=== PATIENT | female | born 1940 | race Caucasian/White ===

== ENCOUNTER 2017-12-14 15:25 | Emergency (ER) | payer OTHER, MEDICARE ==
[~2017-12-14] VITALS: Ht 162.6 cm; Wt 49.9 kg
[2017-12-14 16:28] LABS: ABSOLUTE BASOPHIL COUNT 0.1 /CUMM (0.0-0.2); ABSOLUTE EOSINOPHIL COUNT 0.1 /CUMM (0.0-0.7); ABSOLUTE GRANULOCYTE CT 7.1 /CUMM (1.4-6.5); ABSOLUTE LYMPH COUNT 0.9 /CUMM (1.2-3.4); ABSOLUTE MONOCYTE COUNT 0.6 /CUMM (0.10-0.60); BASOPHIL % 0.7 % (0.0-2.0); EOSINOPHIL % 0.8 % (0-5); GRANULOCYTE % 81.5 % (42.2-75.2); HEMATOCRIT 32.4 % (37-47); MEAN CORPUSCULAR HGB 30.8 PG (27.0-31.0); MEAN CORPUSCULAR HGB CONC 33.5 G/DL (33.0-37.0); MEAN CORPUSCULAR VOLUME 91.7 FL (81.0-99.0); MEAN PLATELET VOLUME 6.4 FL (7.4-10.4); PLATELET COUNT 331 /CUMM (130-400); RBC DISTRIBUTION WIDTH 14.5 % (11.5-14.5); RED BLOOD CELL CT 3.53 /CUMM (4.20-5.40); WHITE BLOOD CELL COUNT 8.8 /CUMM (4.8-10.8)
--- NOTE | 2017-12-14 19:18 | ED GI/GU/ABDOMINAL COMPLAINT ---
History of Present Illness General Chief Complaint: Abdominal Pain/Flank Pain Stated Complaint: ABD PAIN Source: patient Exam Limitations: no limitations Vital Signs & Intake/Output Vital Signs & Intake/Output Vital Signs Date Time Temp Pulse Resp B/P B/P Pulse O2 O2 Flow FiO2 Mean Ox Delivery Rate 12/14 2121 64 20 186/70 99 Room Air 12/14 1611 97.6 65 18 156/76 98 Room Air Allergies Coded Allergies: Sulfa (Sulfonamide Antibiotics) (HIVES 12/14/17) amoxicillin (HIVES 12/14/17) clarithromycin (From BIAXIN) (ANAPHYLAXIS 12/14/17) clindamycin (HIVES 12/14/17) levofloxacin (From LEVAQUIN) (HIVES 12/14/17) Triage Note: PT STATES SHE HAD STABBING PAIN ABOUT ONE HOUR. PT STATES SHE WAS DOUBLED OVER AND SHE FELT IF SHE COULD PASS OUT. PT DENIES THIS EVERY HAPPENING BEFORE. PT DENIES URINARY S/S AND STATES SHE IS MOVING HER BOWELS WITHOUT DIFFICULTY Triage Nurses Notes Reviewed? yes LMP (ages 10-50): post menopausal ? n Is pt currently ? No Onset: Abrupt Duration: hour(s): (4-5), better, continues in ED Timing: single episode today Quality/Severity: sharpness, severe, stabbing Severity Numbers: 9 Location: epigastric Radiation: back, flank (bilateral) Activities at Onset: eating Prior Abdominal Problems: none Past Sexual History: Unobtainable at this time No Modifying Factors: none Modifying Factors: Worsens With: movement, palpation. Associated Symptoms: abdominal pain HPI: 77-year-old female past medical history of rheumatoid arthritis presents for evaluation of epigastric pain. Patient states that about 4-5 hours ago now she was getting ready to eat lunch when she suddenly felt a severe sharp stabbing pain in her epigastric area. She states that she tried to eat through the pain however eating seems to make the pain worse. The pain was located in the epigastric area and radiates around the bilateral flanks of the back. Described as sharp stabbing. Never had this before. No associated nausea vomiting diarrhea or urinary symptoms shortness of breath or hemoptysis. Patient states that since the pain first started as improved significantly. She is not taking any medicine for this. She denies any feeling of heartburn. No history of heartburn. She does not take any NSAIDs. Denies any cardiac history. She is not a diabetic. No recent surgery recent trauma or extremity edema. No history of DVT. (David Maynard) Past History Travel History Traveled to [place] past 21 day No Medical History Any Pertinent Medical History? see below for history Musculoskeletal: RA Surgical History Surgical History: non-contributory Psychosocial History What is your primary language Zambian Tobacco Use: Never used ETOH Use: denies use Illicit Drug Use: denies illicit drug use Family History Hx Contributory? No (David Maynard) Review of Systems Review of Systems Constitutional: Reports: no symptoms. EENTM: Reports: no symptoms. Respiratory: Reports: no symptoms. Cardiovascular: Reports: no symptoms. GI: Reports: see HPI, abdominal pain. Genitourinary: Reports: no symptoms. Musculoskeletal: Reports: no symptoms. Skin: Reports: no symptoms. Neurological/Psychological: Reports: no symptoms. Hematologic/Endocrine: Reports: no symptoms. Immunologic/Allergic: Reports: no symptoms. All Other Systems: Reviewed and Negative (David Maynard) Physical Exam Physical Exam General Appearance: well developed/nourished, no apparent distress, alert, awake Head: atraumatic, normal appearance Eyes: Bilateral: normal appearance, PERRL, EOMI. Ears, Nose, Throat, Mouth: hearing grossly normal, moist mucous membrane Neck: normal inspection, supple, full range of motion Respiratory: normal breath sounds, chest non-tender, no respiratory distress, lungs clear Cardiovascular: regular rate/rhythm, normal peripheral pulses Peripheral Pulses: 2+ radial (R), 2+ radial (L) Gastrointestinal: normal bowel sounds, soft, no organomegaly, tenderness ( epigastric) Back: normal inspection, normal range of motion, no vertebral tenderness, no CVA tenderness Extremities: normal range of motion, no peripheral edema Neurologic/Psych: no motor/sensory deficits, awake, alert, oriented x 3, normal gait, normal mood/affect Skin: intact, normal color, warm/dry Core Measures ACS in differential dx? Yes Sepsis Present: No Sepsis Focused Exam Completed? No (David Maynard) Progress Differential Diagnosis: AAA, AMI, appendicitis, biliary colic, bowel obstruction , cholecystitis, diverticulitis, gastritis, kidney stone, pancreatitis, peptic ulcer, PUD/GERD, perforated viscous, UTI/pyelo Plan of Care: Orders Procedure Date/time Status TROPONIN LEVEL 04/23 2000 Complete EKG 12/15 1999 Active URINALYSIS 12/14 195 Complete TROPONIN LEVEL 12/14 160 Complete LIPASE 12/14 160 Complete COMPREHENSIVE METABOLIC PANEL 12/14 160 Complete CBC WITHOUT DIFFERENTIAL 12/14 160 Complete AMYLASE 12/14 160 Complete EKG 12/14 1528 Active Laboratory Tests 12/14/178: Urine Color YEL, Urine Clarity CLEAR, Urine pH 6.0, Ur Specific Sterling 1.020, Urine Protein NEG, Urine Ketones NEG, Urine Nitrite NEG, Urine Bilirubin NEG, Urine Urobilinogen 0.2, Ur Leukocyte Esterase NEG, Ur Microscopic EXAM NOT REQUIRED, Urine Hemoglobin NEG, Urine Glucose NEG 12/14/172024: Troponin I < 0.01 12/14/17 161: Anion Gap 8, Estimated GFR > 60, BUN/Creatinine Ratio 41.3 H, Glucose 97, Calcium 10.0, Total Bilirubin 0.6, AST 32, ALT 33, Alkaline Phosphatase 63, Troponin I < 0.01, Total Protein 6.6, Albumin 4.2, Globulin 2.4, Albumin/ Globulin Ratio 1.8, Amylase 53, Lipase 47, CBC w Diff NO MAN DIFF REQ, RBC 3.53 L, MCV 91.7, MCH 30.8, MCHC 33.5, RDW 14.5, MPV 6.4 L, Gran % 81.5 H, Lymphocytes % 10.4 L, Monocytes % 6.6, Eosinophils % 0.8, Basophils % 0.7, Absolute Granulocytes 7.1 H, Absolute Lymphocytes 0.9 L, Absolute Monocytes 0.6, Absolute Eosinophils 0.1, Absolute Basophils 0.1 Patient seen and evaluated. She is here with acute onset epigastric pain radiating around the flanks to the back. The pain was most severe at onset and has improved significantly now. Patient currently reports pain that is a 2 out of 10 when it was initially 9 out of 10. The pain started before eating and worsened with eating. There was no shortness of breath nausea vomiting or diarrhea. She never had this before. Does not take NSAIDs. No melena or bright red blood per rectum. Vital signs are stable patient appears clinically well. Basic blood work was obtained patient will get a CTA of the chest and pelvis to rule out dissection. Patient is medicated with Pepcid here. All blood work is back and does not show any significant change including a negative lipase negative troponin. CT of the chest on the pelvis is negative for any acute findings EKG troponin negative. Patient continues to report improvement in her symptoms. Patient was able to eat food and fluids here without any worsening of her pain. No vomiting. A repeat EKG troponin was ordered. EKG troponin are negative and unchanged patient continues to have improvement in her symptoms. She currently reports feeling well having no concerns. No chest pain no shortness of breath. Reviewed all results of today's visit with patient. She'll be referred to her primary care doctor for further evaluation treatment. Advised her to continue Pepcid. Avoid greasy fatty spicy foods. Avoid alcohol and caffeine. Discussed return the cautions in detail. Case discussed with Dr. Real he agrees. Repeat manual blood pressure 150s over 90s. Diagnostic Imaging: Viewed by Me: CT Scan. Discussed w/RAD: CT Scan. Radiology Impression: PATIENT: HANDY LOPEZ PRESENT AGE: 77 PATIENT ACCOUNT NO: [id number] : 39 LOCATION: [facility] ORDERING PHYSICIAN: David PEMBERTON SERVICE DATE: 12/14/17 EXAM TYPE: CAT - CT ABD & PELVIS ANGIOGRAM; CTA CHEST-AORTIC DISSECTION STUDY PERFORMED: CTA OF THE CHEST, ABDOMEN AND PELVIS WITH AND WITHOUT CONTRAST CLINICAL INFORMATION: Epigastric pain radiating to the back. DESCRIPTION: Initial noncontrast CT of the chest was performed. Contrast timing was performed at the level of the distal descending thoracic aorta. Subsequently, arterial phase multidetector volumetric imaging was performed through the chest, abdomen and pelvis following the administration of 95 mL Optiray 320 intravenous contrast. No contrast reaction reported Sagittal and coronal reformatted images were obtained on the technologist workstation. Three-dimensional MIP reformatted imaging was performed and reviewed. Total exam dose-length product 552.34 mGy-cm COMPARISON: None FINDINGS: Vascular: 1. Thoracic aorta: The ascending thoracic aorta is normal, measuring up to 3.0 cm there is no evidence of dissection. There is no significant atherosclerotic disease. The descending thoracic aorta is normal in caliber with minimal nonflow limiting atherosclerotic disease. 2. Great vessels: The brachiocephalic artery, left common carotid artery and left subclavian artery are widely patent without evidence of atherosclerotic disease. 3. Coronary vessels: Minimal visible calcifications 4. Mesenteric Arteries: The celiac axis, superior mesenteric artery and inferior mesenteric artery are patent. There is conventional branching anatomy of the celiac axis. 5. Renal Arteries: There are 2 left and 2 right renal arteries which appear patent. 6. Infrarenal Abdominal Aorta :Mild diffuse infrarenal abdominal aortic disease. No flow-limiting stenosis. The iliac arteries are normal in course and caliber. 7. No segmental or subsegmental pulmonary emboli within the pulmonary artery. Nonvascular: CHEST: The central airways are patent. The lungs are clear with no evidence of consolidation. No pleural effusion or pneumothorax. There are no pulmonary parenchymal nodules. Mild pleural thickening of the lung apices bilaterally. The heart is of normal size. No pericardial effusion. There is no mediastinal, hilar or axillary lymphadenopathy. There are no chest wall masses. Subcentimeter hypodense nodule in the right thyroid lobe. ABDOMEN AND PELVIS: The liver is normal in size, shape, and attenuation. No focal hepatic lesion or biliary ductal dilatation is present. The gallbladder is unremarkable with no evidence of radiopaque gallstones, gallbladder wall thickening, or obvious pericholecystic inflammatory changes. There is mixing of contrast within the portal vein due to the phase of contrast timing. The pancreas is normal in appearance. No mass or surrounding fluid. The adrenal glands are normal in appearance. The spleen is normal in appearance. The kidneys are normal in size, shape, and attenuation. No hydronephrosis, hydroureter, or calculi. Stomach and small bowel non-dilated. Small hiatal hernia. No colonic wall thickening or pericolonic inflammatory changes. No hernia seen. No lymphadenopathy. The aorta is normal in caliber. Bladder is distended without wall thickening. Pelvic viscera are unremarkable. BONY STRUCTURES: Severe degenerative disc disease L5- S1. Additional mild degenerative disc disease is noted at L2-L3. No acute osseous finding. IMPRESSION: 1. No aneurysm, dissection, vascular malformation or flow-limiting stenosis of the thoracic or abdominal aorta. 2. No acute findings of the chest, abdomen or pelvis. DICTATED BY: Douglas Venegas MD DATE/ TIME DICTATED:12/14/172045 ADULT NEUROLOGIST:CALI DATE/TIME TRANSCRIBED: 12/14/172045 CONFIDENTIAL, DO NOT COPY WITHOUT APPROPRIATE AUTHORIZATION. < Electronically signed in Other Vendor System> SIGNED BY: Douglas Venegas MD 12/14/17 1333 Initial ED EKG: normal sinus rhythm, nonspecific ST T wave chg, LEFT ATRIAL ABN Repeat EKG: unchanged (David Maynard) Departure Departure Disposition: HOME OR SELF CARE Condition: Stable Clinical Impression Primary Impression: Epigastric pain Referrals: Hali KANG,Renato Almeida (PCP/Family) Additional Instructions: Continue Pepcid once daily as needed for abdominal pain/acid reflux. Avoid greasy fatty spicy foods. Make a follow-up appointment with your primary care doctor for recheck this week. Monitor symptoms closely return with any concerns. Departure Forms: Customer Survey General Discharge Information (David Maynard) PA/GRAIN ELEVATOR SUPERINTENDENT Co-Sign Statement Statement: ED Attending supervision documentation- [] I saw and evaluated the patient. I have also reviewed all the pertinent lab results and diagnostic results. I agree with the findings and the plan of care as documented in the PA's/GRAIN ELEVATOR SUPERINTENDENT's documentation. [x] I have reviewed the ED Record and agree with the PA's/GRAIN ELEVATOR SUPERINTENDENT's documentation. [] Additions or exceptions (if any) to the PAs/GRAIN ELEVATOR SUPERINTENDENT's note and plan are summarized below: [] (Addie KANG,Steven Almeida)
--- NOTE | 2017-12-14 21:07 | CT SCAN REPORT ---
STUDY PERFORMED: CTA OF THE CHEST, ABDOMEN AND PELVIS WITH AND WITHOUT CONTRAST CLINICAL INFORMATION: Epigastric pain radiating to the back. DESCRIPTION: Initial noncontrast CT of the chest was performed. Contrast timing was performed at the level of the distal descending thoracic aorta. Subsequently, arterial phase multidetector volumetric imaging was performed through the chest, abdomen and pelvis following the administration of 95 mL Optiray 320 intravenous contrast. No contrast reaction reported Sagittal and coronal reformatted images were obtained on the technologist workstation. Three-dimensional MIP reformatted imaging was performed and reviewed. Total exam dose-length product 552.34 mGy-cm COMPARISON: None FINDINGS: Vascular: 1. Thoracic aorta: The ascending thoracic aorta is normal, measuring up to 3.0 cm there is no evidence of dissection. There is no significant atherosclerotic disease. The descending thoracic aorta is normal in caliber with minimal nonflow limiting atherosclerotic disease. 2. Great vessels: The brachiocephalic artery, left common carotid artery and left subclavian artery are widely patent without evidence of atherosclerotic disease. 3. Coronary vessels: Minimal visible calcifications 4. Mesenteric Arteries: The celiac axis, superior mesenteric artery and inferior mesenteric artery are patent. There is conventional branching anatomy of the celiac axis. 5. Renal Arteries: There are 2 left and 2 right renal arteries which appear patent. 6. Infrarenal Abdominal Aorta :Mild diffuse infrarenal abdominal aortic disease. No flow-limiting stenosis. The iliac arteries are normal in course and caliber. 7. No segmental or subsegmental pulmonary emboli within the pulmonary artery. Nonvascular: CHEST: The central airways are patent. The lungs are clear with no evidence of consolidation. No pleural effusion or pneumothorax. There are no pulmonary parenchymal nodules. Mild pleural thickening of the lung apices bilaterally. The heart is of normal size. No pericardial effusion. There is no mediastinal, hilar or axillary lymphadenopathy. There are no chest wall masses. Subcentimeter hypodense nodule in the right thyroid lobe. ABDOMEN AND PELVIS: The liver is normal in size, shape, and attenuation. No focal hepatic lesion or biliary ductal dilatation is present. The gallbladder is unremarkable with no evidence of radiopaque gallstones, gallbladder wall thickening, or obvious pericholecystic inflammatory changes. There is mixing of contrast within the portal vein due to the phase of contrast timing. The pancreas is normal in appearance. No mass or surrounding fluid. The adrenal glands are normal in appearance. The spleen is normal in appearance. The kidneys are normal in size, shape, and attenuation. No hydronephrosis, hydroureter, or calculi. Stomach and small bowel non-dilated. Small hiatal hernia. No colonic wall thickening or pericolonic inflammatory changes. No hernia seen. No lymphadenopathy. The aorta is normal in caliber. Bladder is distended without wall thickening. Pelvic viscera are unremarkable. BONY STRUCTURES: Severe degenerative disc disease L5-S1. Additional mild degenerative disc disease is noted at L2-L3. No acute osseous finding. IMPRESSION: 1. No aneurysm, dissection, vascular malformation or flow-limiting stenosis of the thoracic or abdominal aorta. 2. No acute findings of the chest, abdomen or pelvis.
[2017-12-14 22:44] VITALS: BP 152/82
== END 2017-12-14 22:51 ==
LOC: ERH 15:25
PROVIDERS: Physician Assistant Medical
DX: R10.13 Epigastric pain (principal)
CPT/HCPCS: 74174; 81003; 93005; 93010

== ENCOUNTER 2018-03-08 12:53 | Emergency (ER) | payer OTHER, MEDICARE ==
[2018-03-08 13:28] LABS: ABSOLUTE BASOPHIL COUNT 0 /CUMM (0.0-0.2); ABSOLUTE EOSINOPHIL COUNT 0 /CUMM (0.0-0.7); ABSOLUTE GRANULOCYTE CT 3.8 /CUMM (1.4-6.5); ABSOLUTE LYMPH COUNT 1.3 /CUMM (1.2-3.4); ABSOLUTE MONOCYTE COUNT 0.4 /CUMM (0.10-0.60); BASOPHIL % 0.4 % (0.0-2.0); EOSINOPHIL % 0.9 % (0-5); GRANULOCYTE % 68.9 % (42.2-75.2); HEMATOCRIT 31.7 % (37-47); MEAN CORPUSCULAR HGB 31.5 PG (27.0-31.0); MEAN CORPUSCULAR HGB CONC 34.6 G/DL (33.0-37.0); MEAN CORPUSCULAR VOLUME 90.9 FL (81.0-99.0); MEAN PLATELET VOLUME 6.6 FL (7.4-10.4); PLATELET COUNT 284 /CUMM (130-400); RBC DISTRIBUTION WIDTH 13.4 % (11.5-14.5); RED BLOOD CELL CT 3.49 /CUMM (4.20-5.40); WHITE BLOOD CELL COUNT 5.5 /CUMM (4.8-10.8)
[2018-03-08 17:06] VITALS: BP 154/74
--- NOTE | 2018-03-08 18:13 | ED GENERAL ADULT ---
History of Present Illness General Chief Complaint: General Adult Stated Complaint: SENT BY PCP FOR IV HYDRATION PER PT Source: patient, family Exam Limitations: no limitations Vital Signs & Intake/Output Vital Signs & Intake/Output Vital Signs Date Time Temp Pulse Resp B/P B/P Pulse O2 O2 Flow FiO2 Mean Ox Delivery Rate 03/08 1706 97.5 64 18 154/74 99 Room Air 03/08 1309 97.9 68 17 146/71 97 Room Air Allergies Coded Allergies: Sulfa (Sulfonamide Antibiotics) (HIVES 12/14/17) amoxicillin (HIVES 12/14/17) clarithromycin (From BIAXIN) (ANAPHYLAXIS 12/14/17) clindamycin (HIVES 12/14/17) levofloxacin (From LEVAQUIN) (HIVES 12/14/17) Triage Note: PT REFERRED TO ED BY MD THOMPSON FOR POSSIBLE IV HYDRATION. PT REPORTS 4-5 WEEKS OF INTERMITTNET LIGHT HEADEDNESS. PER CALL IN, PTS SYSTOLIC BP DROPPED 20 POINTS FROM SITTING TO STANDING. PULSE REMAINED THE SAME. PT DENIES CP, SOB, PALPITATIONS. Triage Nurses Notes Reviewed? yes HPI: This is a 78-year-old woman with history of rheumatoid arthritis presenting to the emergency department with several weeks of progressive and intermittent weakness. Patient states she has been leaving the house less often, sometimes feels fatigued with daily activities. She denies any shortness of breath or chest pain or nausea/vomiting. She does report some poor appetite recently. Patient states that her of many years in the winter and since that time she has been feeling "a little depressed". She was seen by her primary care doctor today who advised her to come to the emergency department for IV fluids, suspected dehydration. Patient states that she has been drinking "a little less recently". She has had no fever/chills/abdominal pain. She denies any change in stool, dysuria, hematuria, vaginal bleeding or discharge. Patient had a visit in the spring for apparent gastritis and is scheduled for a outpatient colonoscopy. Past History Travel History Traveled to [place] past 21 day No Medical History Any Pertinent Medical History? see below for history Musculoskeletal: RA Surgical History Surgical History: non-contributory Psychosocial History What is your primary language Yi Tobacco Use: Never used Family History Hx Contributory? No Review of Systems Review of Systems Constitutional: Reports: see HPI, weakness, unexplained weight loss. Denies: chills, diaphoresis, fever, malaise. EENTM: Reports: no symptoms. Respiratory: Reports: no symptoms. Cardiovascular: Reports: no symptoms. GI: Reports: see HPI. Genitourinary: Reports: no symptoms. Musculoskeletal: Reports: no symptoms. Skin: Reports: no symptoms. Neurological/Psychological: Reports: see HPI. Hematologic/Endocrine: Reports: no symptoms. Immunologic/Allergic: Reports: no symptoms. Physical Exam Physical Exam General Appearance: well developed/nourished, no apparent distress, alert, awake , comfortable, thin Head: atraumatic, normal appearance Eyes: Bilateral: normal appearance. Ears, Nose, Throat: normal pharynx, normal ENT inspection Neck: normal inspection, supple, full range of motion Respiratory: normal breath sounds, chest non-tender, no respiratory distress, lungs clear Cardiovascular: regular rate/rhythm, normal peripheral pulses Gastrointestinal: normal bowel sounds, soft, non-tender Rectal: deferred Back: normal inspection, normal range of motion Extremities: normal inspection, normal capillary refill, normal range of motion, no edema Neurologic/Psych: no motor/sensory deficits, awake, alert, oriented x 3, normal gait, normal mood/affect Skin: intact Core Measures ACS in differential dx? No CVA/TIA Diagnosis: No Sepsis Present: No Sepsis Focused Exam Completed? No Progress Differential Diagnoses I considered the following diagnoses in my evaluation of the patient: Dehydration secondary to poor p.o. intake, could be chronic blood loss secondary to gastritis/peptic ulcer disease. Some concern for occult cancer given patient has had unintentional weight loss. Clinically suspect that the symptoms are secondary to depression related to complex grief reaction after losing her . Patient denies any cardiopulmonary symptoms suggestive of ACS. Plan of Care: Orders Procedure Date/time Status TROPONIN LEVEL 03/08 1309 Complete COMPREHENSIVE METABOLIC PANEL 03/08 1309 Complete CREATINE PHOSPHOKINASE 03/08 1309 Complete CBC WITHOUT DIFFERENTIAL 03/08 1309 Complete EKG 03/08 1309 Active Laboratory Tests 03/08/18 1320: Anion Gap 12, Estimated GFR > 60, BUN/Creatinine Ratio 28.8 H, Glucose 88, Calcium 9.9, Total Bilirubin 0.5, AST 31, ALT 39, Alkaline Phosphatase 52, Creatine Kinase 71, Troponin I < 0.01, Total Protein 6.4, Albumin 4.1, Globulin 2.3, Albumin/Globulin Ratio 1.8, CBC w Diff NO MAN DIFF REQ, RBC 3.49 L, MCV 90.9, MCH 31.5 H, MCHC 34.6, RDW 13.4, MPV 6.6 L, Gran % 68.9, Lymphocytes % 22.8, Monocytes % 7.0, Eosinophils % 0.9, Basophils % 0.4, Absolute Granulocytes 3.8, Absolute Lymphocytes 1.3, Absolute Monocytes 0.4, Absolute Eosinophils 0, Absolute Basophils 0 Patient undergoes labs which reveal a ongoing anemia, stable from prior. Labs also show increased BUN/creatinine ratio. This is suggestive of dehydration. Following IV fluids, patient is very well-appearing and states she would like to be discharged home. She understands that we have not elucidated the cause of her lightheadedness and understands further that she will need outpatient follow -up. She is discharged home with return precautions and follow-up instructions. Initial ED EKG: normal axis, normal intervals, normal p-waves, normal QRS complex, normal sinus rhythm Departure Departure Time of Disposition: 1808 Disposition: HOME OR SELF CARE Condition: Stable Clinical Impression Primary Impression: Dehydration Secondary Impressions: Anemia, Lightheadedness Referrals: Hali KANG,Renato Almeida (PCP/Family) Additional Instructions: Thank you for coming to [facility] emergency department today. As we discussed, recommend he follow-up with your primary care doctor for further evaluation. I would strongly consider having a colonoscopy and potentially get endoscopy as well. Please return to the emergency department immediately if you develop any shortness of breath, chest pain, severe headache, dizziness, fever or chills. Departure Forms: Customer Survey General Discharge Information Critical Care Note Critical Care Note Critical Care Time: mins: ED Attending Observation Initial Observation Note: I have seen and personally examined HANDY LOPEZ on 03/08/18 at 1811. I agree with the current emergency department documentation. The disposition (admission or discharge) is uncertain at this time, she needs a period of observation for the following reason(s): The ED Nurse caring for this patient has been personally informed as to what the patient is being observed for.
== END 2018-03-08 18:15 ==
LOC: ERH 12:53
PROVIDERS: Physician Assistant
DX: E86.0 Dehydration (principal); D64.9 Anemia, unspecified; R42 Dizziness and giddiness
CPT/HCPCS: 93005; 93010